=== PATIENT | male | born 1990 | race Caucasian/White ===

== ENCOUNTER → 2022-09-21 08:27 | Outpatient (CLI) | payer BC, SELFPAY ==
[2022-09-21 09:57] LABS: Influenza A - CEPHEID Flu A POSITIVE (NEGATIVE); Influenza B - CEPHEID Flu B NEGATIVE (NEGATIVE); Respiratory Syncytial Virus Negative (Negative)
[2022-09-21 10:24] LABS: COVID-19 CEPHEID 4-PLEX PCR Negative (Negative)
== END ==
PROVIDERS: Visit Provider Nurse Practitioner Family
DX: R05.9 Cough, unspecified (principal); J02.9 Acute pharyngitis, unspecified
CPT/HCPCS: 0241U; 87070; 87147

== ENCOUNTER 2025-09-08 08:16 | Emergency (ER) | payer OTHER, SELFPAY ==
[2025-09-08 08:48] VITALS: BP 164/79; PULSE 110; RESP 18; TEMP 36.5; O2SAT 97; BMI 36.2
--- NOTE | 2025-09-08 09:04 | DI.US.S_ITS ---
PROCEDURE: US SCROTUM
--- NOTE | 2025-09-08 09:05 | ED_ITS ---
HPI - Male Genitourinary
--- NOTE | 2025-09-08 09:05 | ED.MALEGU ---
HPI - Male Genitourinary General Chief complaint: Urogenital-Male Stated complaint: severe right testicle pain Time Seen by Provider: 09/08/25 08:55 Source: patient Mode of arrival: Ambulatory History of Present Illness HPI Narrative: 35 years old male came in today complaining of right testicle pain since yesterday after walking with his dog without strenuous activity, injury, abdominal pain, vomiting, fever, urine problem, penile discharge, hernia, new partner, chest pain, shortness of breath, similar symptoms. He reported nausea with the pain. Related Data Home Medications ?Medication ?Instructions ?Recorded ?Confirmed atenolol PO 09/21/22 09/21/22 escitalopram oxalate [Lexapro] PO 09/21/22 09/21/22 methylphenidate HCl PO 09/21/22 09/21/22 Previous Rx's ?Medication ?Instructions ?Recorded amoxicillin 500 mg capsule 500 mg PO BID #20 caps 09/26/22 doxycycline hyclate 100 mg capsule 100 mg PO BID #20 caps 09/08/25 hydrocodone 5 mg-acetaminophen 325 1 tab PO Q6H PRN pain #10 tabs 09/08/25 mg tablet Allergies Allergy/AdvReac Type Severity Reaction Status Date / Time No Known Drug Allergies Allergy Verified 09/08/25 08:48 Review of Systems Review of Systems Narrative: complaining of right testicle pain since yesterday after walking with his dog, nausea. Negative for strenuous activity, injury, abdominal pain, vomiting, fever, urine problem, penile discharge, hernia, new partner, chest pain, shortness of breath, similar symptoms. Patient History Social History Smoking Status: Former smoker Smoking Status: Former smoker Exam Narrative Exam Narrative: GENERAL: Alert awake without acute distress. HEAD: Atraumatic. Normocephalic. NECK: Trachea midline. Non tender CARDIOVASCULAR: Regular rate and rhythm without murmurs, gallops, or rubs. RESPIRATORY: Clear to auscultation. Breath sounds equal bilaterally. No wheezes, rales, or rhonchi. GASTROINTESTINAL: Abdomen soft, non-tender, nondistended. : High-riding right testicle with tenderness on palpation without swelling erythema or ecchymosis. Normal penis without discharge. Normal left testicle without tenderness or swelling. EXTREMITIES: No edema or joint tenderness. BACK: Nontender without deformity or crepitance. No flank tenderness. No CVA tenderness on tapping. NEURO: AOx3. Initial Vital Signs Initial Vital Signs: Vital Signs Temperature 97.7 F 09/08/25 08:48 Pulse Rate 110 H 09/08/25 08:48 Respiratory Rate 18 09/08/25 08:48 Blood Pressure 164/79 H 09/08/25 08:48 Pulse Oximetry 97 09/08/25 08:48 Oxygen Delivery Method Room Air 09/08/25 08:48 Course Orders Ordered: Discontinued Medications Ceftriaxone Sodium 1,000 mg/ (Sodium Chloride) 100 mls @ 200 mls/hr IV NOW ONE Stop: 09/08/25 10:07 Last Infusion: 09/08/25 12:47 Dose: Infused Documented By: Admin: 09/08/25 10:38 Dose: 200 mls/hr Documented By: EB Ketorolac Tromethamine (Ketorolac 30 Mg/Ml Vial) 15 mg IV NOW ONE Stop: 09/08/25 09:07 Last Admin: 09/08/25 10:00 Dose: 15 mg Documented By: ES Vital Signs Vital signs: Vital Signs - 8 hr 09/08/25 08:48 09/08/25 14:07 Temperature 97.7 F 98.4 F Pulse Rate 110 H 78 Respiratory Rate 18 16 Blood Pressure 164/79 H 119/79 Pulse Oximetry 97 98 Oxygen Delivery Method Room Air Room Air MDM - Male Genitourinary Lab Data 09/08/25 09:50 09/08/25 09:50 Labs: Lab Results 09/08/25 Range/Units 09:50 WBC 3.6 L (4.5-11.0) X10^3/uL RBC 5.48 (4.5-5.9) X10^6/uL Hgb 15.4 (13.5-17.5) g/dL Hct 45.4 (41-53) % MCV 82.8 (80-100) fL MCH 28.2 (26-34) PG MCHC 34.0 (30-36) % RDW 13.2 (11.6-14.8) % Plt Count 288 (150-400) X10^3/uL Neut % (Auto) 47.7 L (50-75) % Lymph % (Auto) 42.0 H (25-40) % [place] % (Auto) 8.7 (3-14) % Eos % (Auto) 1.2 L (2-4) % Baso % (Auto) 0.4 (0-2) % Neut # (Auto) 1700 (4712-1028) /uL Lymph # (Auto) 1500 (2419-3125) /uL [place] # (Auto) 300 (0-900) /uL Eos # (Auto) 0 (0-450) /uL Baso # (Auto) 0 (0-100) /uL Sodium 138 (137-145) mmol/L Potassium 4.2 (3.4-5.1) mmol/L Chloride 99 (98-107) mmol/L Carbon Dioxide 25 (22-32) mmol/L BUN 14 (9-20) mg/dL Creatinine 0.85 (0.66-1.25) mg/dL Estimated GFR > 60 (>60) mL/min BUN/Creatinine Ratio 16.5 (6-22) Glucose 110 H (70-99) mg/dL Calcium 9.3 (8.4-10.2) mg/dL Total Bilirubin 0.9 (0.2-1.3) mg/dL AST 48 (17-59) IU/L ALT 69 H (<50) IU/L Alkaline Phosphatase 65 (38-126) U/L Total Protein 8.8 H (6.3-8.2) g/dL Albumin 5.0 (3.5-5.0) g/dL Globulin 3.8 (1.7-4.1) g/dL Albumin/Globulin Ratio 1.3 (1.0-2.8) Lipase 130 (23-300) U/L Imaging Data CT scan - abdomen/pelvis: Radiologist's Impression: PROCEDURE: CT ABDOMEN PELVIS W CON INDICATIONS: Right scrotal pain TECHNIQUE: After the administration of intravenous contrast, axial sections acquired from the lung bases to the pubic symphysis. Coronal and sagittal reformats were performed. For radiation dose reduction, the following was used: automated exposure control, adjustment of mA and/or kV according to patient size. COMPARISON: [facility], US, US SCROTUM, 09/08/2025, 9:37. FINDINGS: Image quality: Diagnostic. Lower Chest: No significant findings. ABDOMEN: Liver: No solid mass. Moderate diffuse hepatic steatosis. Hepatomegaly. Gallbladder: No radiopaque gallstones or wall thickening. Biliary ducts: No biliary dilation. Pancreas: No ductal dilation. Spleen: Spleen is upper limits of normal, measuring 13.0 x 5.6 x 12.6 cm. Adrenal Glands: No adrenal nodules. Kidneys and Ureters: No hydronephrosis. No solid mass. No complex renal cystic lesion which requires follow up. Stomach and Bowel: Normal colonic caliber, without significant wall thickening. Peritoneum: No abnormal intraperitoneal fluid. No free air. Ventral Wall: No significant ventral hernia. Abdominal Nodes: No retroperitoneal or mesenteric adenopathy by size criteria. Vessels: Aorta and inferior vena cava are normal in size. PELVIS: Pelvic Organs: Unremarkable. Bladder: No bladder wall thickening, accounting for underdistention. Pelvic Nodes: No enlarged lymph nodes. Miscellaneous: No inguinal hernias are seen. Imaging included the scrotal contents. There is no gas present in the right hemiscrotum. There are bilateral scrotal surgical clips. Scrotum bilaterally is otherwise unremarkable. Bones: No aggressive osseous abnormality. IMPRESSION: 1. The structure seen on the ultrasound of the scrotum is not a gas containing structure. There are no suspicious findings noted. 2. No acute process in the abdomen and pelvis. 3. Hepatomegaly, moderate diffuse hepatic steatosis. Dictated by: Iam Mancia M.D. on 09/08/2025 at 11:23 Approved by: Iam Mancia M.D. on 09/08/2025 at 11:30 Ultrasound scrotum: Radiologist's Impression: PROCEDURE: US SCROTUM INDICATIONS: Right testicle pain TECHNIQUE: Real-time scanning was performed of the scrotum and testicles, with image documentation. Color and pulse Doppler interrogation was performed of both testicles. COMPARISON: None. FINDINGS: Right: Testicle is normal in size at 4.1 x 2.5 x 2.9 cm, and homogenous in echotexture. Epididymis is normal in overall size and morphology. No hydrocele or varicoceles. Overlying scrotal skin is normal in thickness. Serpiginous hyperechoic region in the right epididymis. Left: Testicle is normal in size at 4.3 x 2.3 x 2.8 cm, and homogeneous in echotexture. Epididymis is normal in overall size and morphology. No hydrocele or varicoceles. Overlying scrotal skin is normal in thickness. Doppler: Color and pulse Doppler demonstrate normal and symmetric arterial flow in both testicles. IMPRESSION: Indeterminate right epididymal lesion at the area of concern. Differential considerations include but not limited to epididymitis with gas/infection, dystrophic calcification, fat and possibly sperm granuloma within tubular ectasia. Further evaluation with CT recommended to exclude gas. Ensure [id number] includes the entire scrotum. Findings were discussed with Dr. Ch by myself by telephone at 10:28 a.m. PST 09/08/2025. Dictated by: Yasmani Ambriz M.D. on 09/08/2025 at 10:02 Approved by: Yasmani Ambriz M.D. on 09/08/2025 at 10:33 [facility] Narrative Medical decision making narrative: 35 years old male came in today complaining of right testicle pain since yesterday after walking with his dog without strenuous activity, injury, abdominal pain, vomiting, fever, urine problem, penile discharge, hernia, new partner, chest pain, shortness of breath, similar symptoms. He reported nausea with the pain. 10:33 a.m.: Got a phone call from radiologist after ultrasound scrotum showed concern about epididymis infection and suggested get CT scan abdomen and pelvis to rule out Amador gangrene. His CV exam, lung exam, abdominal exam were normal. He has no acute distress and alert oriented x4 in the ED. genital exam showed elevation of the right testicle with tenderness on palpation without swelling or ecchymosis. Normal penis exam. His CBC showed WBC 3.6 otherwise normal CBC. His CMP showed ALT 69 otherwise normal CMP. His lipase was normal. His CT scan abdomen and pelvis showed no gas at the genital area or suspicious of Amador gangrene otherwise no acute finding in the abdomen or pelvis. Hepatomegaly with a feel hepatosteatosis. He was given Rocephin IV and will be sent home with doxycycline for 10 days. Discharge Plan Departure Patient Disposition: Home Clinical Impression: Acute epididymitis Instructions: DI for Epididymitis Activity Restrictions/Additional Instructions: Please come back to the emergency room if any worsening symptoms including but not limited to fever, worsening pain, nausea vomiting, abdominal pain. Please finish antibiotic. Please drink plenty of fluid. Prescriptions: New doxycycline hyclate 100 mg capsule 100 mg PO BID Qty: 20 0RF hydrocodone-acetaminophen 5-325 mg tablet 1 tab PO Q6H PRN (Reason: pain) Qty: 10 0RF No Action methylphenidate HCl PO atenolol PO escitalopram oxalate [Lexapro] PO amoxicillin 500 mg capsule 500 mg PO BID Qty: 20 0RF Stand Alone Forms: Patient Portal/API
[2025-09-08] MEDS: KETOROLAC 30 MG/ML VIAL 15 MG IV (10:00)
[2025-09-08 10:08] LABS: Add Manual Diff / Slide Review NO; Hematocrit 45.4 % (41-53); Hemoglobin 15.4 g/dL (13.5-17.5); Lymphocytes Absolute Auto 1500 /uL (1100-4500); Mean Corpuscular HGB Conc 34.0 % (30-36); Mean Corpuscular Hemoglobin 28.2 PG (26-34); Mean Corpuscular Volume 82.8 fL (80-100); Platelet Count 288 X10^3/uL (150-400)
[2025-09-08 10:18] LABS: Alanine Aminotransferase 69 IU/L (<50); Albumin 5.0 g/dL (3.5-5.0); Albumin Globulin Ratio 1.3 (1.0-2.8); Alkaline Phosphatase 65 U/L (38-126); Blood Urea Nitrogen 14 mg/dL (9-20); Calcium 9.3 mg/dL (8.4-10.2); Carbon Dioxide 25 mmol/L (22-32); Chloride 99 mmol/L (98-107); Estimated Glomerular Filt Rate > 60 mL/min (>60); Globulin 3.8 g/dL (1.7-4.1); Glucose 110 mg/dL (70-99); HEMOLYSIS < 15 (0-50); Lipase 130 U/L (23-300); Potassium 4.2 mmol/L (3.4-5.1); Sodium 138 mmol/L (137-145); Total Protein 8.8 g/dL (6.3-8.2)
--- NOTE | 2025-09-08 10:33 | DI.CT.S_ITS ---
PROCEDURE: CT ABDOMEN PELVIS W CON
[2025-09-08 14:07] VITALS: BP 119/79; PULSE 78; RESP 16; TEMP 36.9; O2SAT 98
[2025-09-08 15:05] VITALS: BP 132/77; PULSE 79; RESP 16; O2SAT 98
== END 2025-09-08 15:09 | disposition home or self-care (01) ==
PROVIDERS: Emergency Provider Emergency Medicine
DX: N45.1 Epididymitis (principal)
CPT/HCPCS: 74177; 76870; 80053; 83690; 85025; 93975; 96365; 96366; 96375; 99283; 99284; J0696; J1885; J7050; Q9967